=== PATIENT | female | born 1975 | race Caucasian/White ===

== ENCOUNTER 2017-03-14 08:15 | Inpatient (IN) | payer OTHER ==
[2017-03-01 09:02] VITALS: BP 108/73
[~2017-03-14] VITALS: Ht 165.1 cm; Wt 108.8 kg
[~2017-03-14 08:15] MED LIST: ALBUTEROL SULFATE 2.5 MG/3 ML NPPB PRN; BUPIVACAINE/PF 0.5% ONE; BUTA1CAP57 PO; CYCL-259 PO; EPHEDRINE 50 MG/ML, 1ML IVPush PRN; EPINEPHRINE 1 MG/ML, 1ML ONE; HYDR200T PO; HYDROcodone/APAP 7.5-325MG/15ML UDC PO PRN; KETOROLAC 30 MG/1 ML IV PRN; LABETALOL 5MG/ML, 20ML IV PRN; LEVO75TA PO; LIDOCAINE-MPF 2% ,5ML ONE; LORA1TAB PO; MAGNESIUM SULFATE 1 GM/2 ML ONE; MEPERIDINE/PF 25MG/0.5ML IVPush PRN; METOCLOPRAMIDE 5 MG/ML, 2ML IV PRN; MULT-115 PO; ONDANSETRON 2MG/ML, 2ML IVPush PRN; OXYcodone 5 MG/5 ML ORAL.SOL UDC PO PRN
[2017-03-14] MEDS ORDERED: FENTANYL PF 100 MCG/2ML ONE ×7 (08:53→13:39)
[2017-03-14] MEDS ORDERED: GLYCOPYRROLATE 0.2MG/1ML, 5ML ONE (08:53)
[2017-03-14] MEDS ORDERED: DEXAMETHASONE 4 MG/ML, 1ML ONE (08:53)
[2017-03-14] MEDS ORDERED: MIDAZOLAM 1 MG/ML, 2ML ONE ×2 (08:53→13:21)
[2017-03-14] MEDS ORDERED: PROPOFOL 10 MG/ML, 20ML ONE (08:53)
[2017-03-14] MEDS ORDERED: ROCURONIUM 10 MG/ML,10ML ONE (08:53)
[2017-03-14] MEDS ORDERED: LACTATED RINGERS 1,000 ML IV SCH (08:55)
[2017-03-14] MEDS ORDERED: LIDOCAINE 1%, 2ML SQ PRN (09:00)
[2017-03-14] MEDS ORDERED: FIORICET PO (09:03)
[2017-03-14] MEDS ORDERED: LIDOCAINE 1%, 2ML ONE (09:14)
[2017-03-14] MEDS ORDERED: ONDANSETRON 2MG/ML, 2ML ONE (10:25)
[2017-03-14] MEDS ORDERED: CLINDAMYCIN 150 MG/ML, 6ML ONE (10:49)
[2017-03-14] MEDS: FENTANYL PF 100 MCG/2ML IV PRN ×4 (13:21→14:08)
[2017-03-14] MEDS: MIDAZOLAM 1 MG/ML, 2ML IV PRN ×2 (13:25→13:40)
[2017-03-14] MEDS ORDERED: HYDROmorphone 1 MG/ML, 1ML ONE (13:38)
[2017-03-14] MEDS ORDERED: PROMETHAZINE 25 MG/ML, 1ML ONE (13:38)
[2017-03-14] MEDS: HYDROmorphone 1 MG/ML, 1ML IV PRN ×2 (13:39→13:51)
[2017-03-14] MEDS ORDERED: KETOROLAC 30 MG/1 ML ONE (13:39)
[2017-03-14] MEDS ORDERED: PROMETHAZINE 25 MG/ML, 1ML IV PRN (14:30)
[2017-03-14] MEDS ORDERED: ENOXAPARIN 30 MG/0.3 ML SQ SCH (15:00)
[2017-03-14] MEDS ORDERED: LORazepam 2 MG/ML, 1ML IV PRN (15:30)
[2017-03-14] MEDS ORDERED: HYDROcodone/APAP 7.5-325MG/15ML UDC PO PRN (15:30)
[2017-03-14] MEDS: POTASSIUM CHLORIDE 20 MEQ in LACTATED RINGERS 1,000 ML IV SCH (17:05)
[2017-03-14] MEDS ORDERED: KETOROLAC 30 MG/1 ML IM SCH (19:30)
[2017-03-14 20:11] VITALS: BP 116/66
[2017-03-14] MEDS: HYDROXYCHLOROQUINE 200 MG TABLET PO SCH (21:00)
[2017-03-14] MEDS: KETOROLAC 30 MG/1 ML IV SCH (22:16)
[2017-03-15 00:30] VITALS: BP 103/62
[2017-03-15] MEDS: POTASSIUM CHLORIDE 20 MEQ in LACTATED RINGERS 1,000 ML IV SCH ×4 (00:35→21:02)
[2017-03-15] MEDS ORDERED: KETOROLAC 30 MG/1 ML IV SCH (01:30)
[2017-03-15 03:14] VITALS: BP 110/69
[2017-03-15] MEDS: KETOROLAC 30 MG/1 ML IV SCH ×3 (04:43→16:30)
[2017-03-15] MEDS: LEVOTHYROXINE 75 MCG TABLET PO SCH (04:43)
[2017-03-15 05:51] LABS: BLOOD UREA NITROGEN 9 mg/dL (7-18)
[2017-03-15 05:55] LABS: ASPARTATE AMINO TRANSFERASE 60 U/L (15-37)
[2017-03-15 08:02] VITALS: BP 104/58
[2017-03-15] MEDS: HYDROXYCHLOROQUINE 200 MG TABLET PO SCH ×2 (09:08→21:00)
[2017-03-15] MEDS: OXYcodone 5 MG/5 ML ORAL.SOL UDC PO PRN ×4 (10:43→23:12)
[2017-03-15 14:48] VITALS: BP 129/62
[2017-03-15] MEDS: ALUMINUM/MAG/SIMETHICONE 30 ML UDC PO PRN (17:11)
[2017-03-15] MEDS: FAMOTIDINE 20 MG TABLET PO SCH ×2 (17:11→21:00)
[2017-03-15] MEDS ORDERED: TEMAZEPAM 30 MG CAPSULE PO PRN (19:00)
[2017-03-15 20:15] VITALS: BP 98/59
[2017-03-16 01:58] VITALS: BP 105/67
[2017-03-16] MEDS: OXYcodone 5 MG/5 ML ORAL.SOL UDC PO PRN ×2 (03:53→07:33)
[2017-03-16] MEDS: LEVOTHYROXINE 75 MCG TABLET PO SCH (05:40)
[2017-03-16] MEDS: POTASSIUM CHLORIDE 20 MEQ in LACTATED RINGERS 1,000 ML IV SCH (06:38)
[2017-03-16 06:51] VITALS: BP 98/66
[2017-03-16] MEDS: FAMOTIDINE 20 MG TABLET PO SCH (08:39)
[2017-03-16] MEDS: ALUMINUM/MAG/SIMETHICONE 30 ML UDC PO PRN (08:39)
[2017-03-16] MEDS: HYDROXYCHLOROQUINE 200 MG TABLET PO SCH (08:39)
== END 2017-03-16 10:15 | disposition home or self-care (01) | DRG 328 ==
LOC: ORIP 08:15 → 4NOR 15:00 → DCLOUNGE 03-16 09:57
PROVIDERS: ADMIT Surgery; ATTEND Surgery
PROC: 0DP64CZ Removal of Extraluminal Device from Stomach, Percutaneous Endoscopic Approach (ICD-10-PCS; 2017-03-14)
PROC: 0DB64Z3 Excision of Stomach, Percutaneous Endoscopic Approach, Vertical (ICD-10-PCS; principal; 2017-03-14 10:30)
DX: K95.09 Other complications of gastric band procedure (principal); E66.01 Morbid (severe) obesity due to excess calories; M32.9 Systemic lupus erythematosus, unspecified; M19.90 Unspecified osteoarthritis, unspecified site; E03.9 Hypothyroidism, unspecified; F32.9 Major depressive disorder, single episode, unspecified; I73.00 Raynaud's syndrome without gangrene; G89.29 Other chronic pain; K66.0 Peritoneal adhesions (postprocedural) (postinfection); M79.7 Fibromyalgia; M54.9 Dorsalgia, unspecified; Z88.1 Allergy status to other antibiotic agents; Z88.0 Allergy status to penicillin; Z83.3 Family history of diabetes mellitus; Z82.49 Family history of ischemic heart disease and other diseases of the circulatory system; Z80.1 Family history of malignant neoplasm of trachea, bronchus and lung; Z88.2 Allergy status to sulfonamides; Z68.39 Body mass index [BMI] 39.0-39.9, adult
CPT/HCPCS: 36415; 80053; 88307; J0171; J1100; J1170; J1650; J1885; J2250; J2270; J2405; J2550; J2704; J3010; J3475; J3480; J3490; J2060; J7120